=== PATIENT | male | born 1945 | race Caucasian/White ===

== ENCOUNTER 2019-06-26 17:59 | Emergency (ER) | payer MEDICARE, MEDICAID ==
[~2019-06-26] VITALS: Ht 175 cm; Wt 77.0 kg
[2019-06-26 18:31] VITALS: BP 127/77
--- NOTE | 2019-06-26 18:33 | ED General ---
General Chief Complaint: Allergic Reaction Stated Complaint: RASH ON BACK Nursing Triage Note: THE PT IS AMBULATORY TO THE ROOM WITHOUT DIFFICULTY. NO DISTRESS IS SEEN ON ARRIVAL. LOC IS NROMAL FOR THE PT. THE PT C/O OF A RASH ON HIS BACK. Nursing Sepsis Screen: No Definite Risk Source of Information: Patient Exam Limitations: No Limitations History of Present Illness Date Seen by Provider: Jun 26, 2019 Time Seen by Provider: 18:22 Initial Comments This 73-year-old gentleman presents to the emergency room with a painless, nonpruritic mildly erythematous rash on his back. He went home from work today feeling ill with dizziness and nausea. He vomited several times. He then rested and now feels normal. He denies any symptoms whatsoever. His girlfriend noted the rash on his back and became concerned. He therefore presented to the emergency room. Allergies and Home Medications Patient Home Medication List Home Medication List Reviewed: Yes Review of Systems Review of Systems Constitutional: no symptoms reported EENTM: no symptoms reported Respiratory: no symptoms reported Cardiovascular: other (dizziness) Gastrointestinal: see HPI Genitourinary: no symptoms reported Musculoskeletal: no symptoms reported Skin: see HPI Psychiatric/Neurological: No Symptoms Reported Hematologic/Lymphatic: No Symptoms Reported Past Tezyawc-Egeprh-Tiyvsj Hx Past Med/Social Hx: Reviewed Nursing Past Med/Soc Hx Patient Social History Recent Foreign Travel: No Contact w/Someone Who Travel: No Recent Infectious Disease Expo: No Recent Hopitalizations: No Physical Abuse: No Sexual Abuse: No Mistreated: No Fear: No Seasonal Allergies Seasonal Allergies: No Past Medical History Surgeries: Yes Orthopedic (multiple foot surgeries) Respiratory: No Cardiac: No Neurological: No Reproductive Disorders: No Gastrointestinal: No Musculoskeletal: Yes (foot problems related to service) Endocrine: No HEENT: No Cancer: No Psychosocial: No Integumentary: No Physical Exam Vital Signs Vital Signs - First Documented 06/26/19 18:16 Temp 36.6 Pulse 80 Resp 16 B/P (MAP) 127/77 (94) Pulse Ox 80 Capillary Refill : Less Than 3 Seconds Height, Weight, BMI Height: '" Weight: lbs. oz. kg; 25.00 BMI Method: General Appearance: No Apparent Distress, WD/WN HEENT: Normal ENT Inspection Respiratory: Lungs Clear, Normal Breath Sounds, No Accessory Muscle Use Cardiovascular: Regular Rate, Rhythm, No Edema, No Murmur Extremity: Normal Inspection Neurologic/Psychiatric: Alert, Oriented x3, No Motor/Sensory Deficits Skin: Warm/Dry, Rash (slightly erythematous and slightly raised maculopapular a rash scattered on the back. It is nonpainful, nontender, and not pruritic.) Progress/Results/Core Measures Suspected Sepsis Recent Fever Within 48 Hours: No Infection Criteria Present: None New/Unexplained Altered Menta: No Sepsis Screen: No Definite Risk SIRS Temperature: Pulse: 80 Respiratory Rate: 16 Blood Pressure 127 /77 Mean: 94 Results/Orders Vital Signs/I&O 06/26/19 06/26/19 18:16 18:31 Temp 36.6 Pulse 80 80 Resp 16 16 B/P (MAP) 127/77 (94) 127/77 Pulse Ox 80 96 Capillary Refill : Less Than 3 Seconds Blood Pressure Mean: 94 Progress Note : Progress Note Patient is asymptomatic other than the presence of rash. I suspect he has a viral illness that contributed to his symptoms earlier today and the rash. Watchful waiting was recommended. Departure Impression Primary Impression: Rash Disposition: 01 HOME, SELF-CARE Condition: Stable Departure-Patient Inst. Decision time for Depature: 18:31 Referrals: NO,LOCAL PHYSICIAN (PCP/Family) Primary Care Physician Patient Instructions: Skin Rash Add. Discharge Instructions: Your rash may be simply caused by a viral illness or some sort of skin exposure. You may apply a moisturizing lotion if you wish. If the rash itches, you may apply an anti-itch cream for a few days. If you have escalating symptoms, please call your doctor. If you have worsening symptoms such as recurrent vomiting or dizziness, development of fever, etc. you may return to the emergency room. All discharge instructions reviewed with patient and/or family. Voiced understanding. Work/School Note: Work Release Form Date Seen in the Emergency Department: Jun 26, 2019 Return to Work: Jun 26, 2019 Restrictions: No Restrictions HNANAH LUCERO MD Jun 26, 2019 18:33
== END 2019-06-26 18:41 | disposition home or self-care (01) ==
LOC: EDUNIT# 17:59 → ER 18:01
DX: R21 Rash and other nonspecific skin eruption (principal)
CPT/HCPCS: 99282

== ENCOUNTER → 2021-01-24 | Outpatient (CLI) | payer MEDICAID, MEDICARE ==
[2021-01-24 11:53] LABS: BASOPHILS # (AUTO) 0.1 10^3/uL (0.0-0.1); BASOPHILS % (AUTO) 1 % (0-10); EOSINOPHILS # (AUTO) 0.1 10^3/uL (0.0-0.3); EOSINOPHILS % (AUTO) 2 % (0-10); HEMATOCRIT 46 % (40-54); HEMOGLOBIN 15.4 g/dL (13.3-17.7); LYMPHOCYTES # (AUTO) 2.5 10^3/uL (1.0-4.0); LYMPHOCYTES % (AUTO) 30 % (12-44); MEAN CORPUSCULAR HEMOGLOBIN 33 pg (25-34); MEAN CORPUSCULAR HGB CONC 33 g/dL (32-36); MEAN CORPUSCULAR VOLUME 98 fL (80-99); MEAN PLATELET VOLUME 9.9 fL (9.0-12.2); MONOCYTES # (AUTO) 0.8 10^3/uL (0.0-1.0); MONOCYTES % (AUTO) 9 % (0-12); NEUTROPHILS # (AUTO) 4.9 10^3/uL (1.8-7.8); NEUTROPHILS % (AUTO) 58 % (42-75); PLATELET COUNT 295 10^3/uL (130-400); WHITE BLOOD COUNT 8.5 10^3/uL (4.3-11.0)
[2021-01-24 12:05] LABS: CHLORIDE 103 MMOL/L (98-107); POTASSIUM 4.2 MMOL/L (3.6-5.0); SODIUM 139 MMOL/L (135-145)
[2021-01-24 12:06] LABS: CALCIUM 9.5 MG/DL (8.5-10.1)
[2021-01-24 12:07] LABS: GLUCOSE 95 MG/DL (70-105)
[2021-01-24 12:08] LABS: TOTAL PROTEIN 6.9 GM/DL (6.4-8.2)
[2021-01-24 12:09] LABS: BILIRUBIN,TOTAL 0.5 MG/DL (0.1-1.0); CARBON DIOXIDE 29 MMOL/L (21-32)
[2021-01-24 12:11] LABS: ALKALINE PHOSPHATASE 63 U/L (40-136); CREATININE SERUM 1.04 MG/DL (0.60-1.30); GFR ESTIMATED > 60
[2021-01-24 12:12] LABS: BUN/CREATININE RATIO 9
[2021-01-24 12:14] LABS: ALANINE AMINOTRANSFERASE 15 U/L (0-55)
[2021-01-24 12:37] LABS: FREE T4 (FREE THYROXINE) 1.06 NG/DL (0.70-1.48)
--- NOTE | 2021-01-24 13:21 | Diagnostic Imaging Report ---
INDICATION: Chronic knee pain. COMPARISON: None. FINDINGS: Three views of the left knee joint demonstrate no acute fracture or dislocation. No focal osseous lesions are seen. Mild suprapatellar joint effusion is noted. There are also advanced tricompartmental degenerative changes. This consists of moderate joint space narrowing with prominent osteophyte formations. There is also sclerotic remodeling to the articular surfaces of the medial femoral condyle and tibial plateau. The surrounding soft tissue structures are unremarkable. There are no radiopaque foreign bodies. IMPRESSION: 1. No acute fractures or dislocations of the left knee joint. 2. Mild joint effusion. 3. Advanced osteoarthritis. Dictated by: Dictated on workstation # [id number]
[2021-01-24 13:36] LABS: CHOLESTEROL 198 MG/DL (< 200); HDL CHOLESTEROL 36 MG/DL (40-60); TRIGLYCERIDES 148 MG/DL (<150); VLDL CHOLESTEROL 30 MG/DL (5-40)
--- NOTE | 2021-01-24 14:48 | Diagnostic Imaging Report ---
HISTORY: Right calf pain, claudication. History of smoking. COMPARISON: None TECHNIQUE: Ankle brachial indices were obtained of the bilateral lower extremities FINDINGS: The highest brachial pressure is on the left, measuring 133 mmHg. The highest pressure in the right ankle measures 63 at the posterior tibial artery and the highest pressure in the left ankle measures 124 at the posterior tibial artery. The right ankle-brachial index measures 0.47 and the left measures 0.93. IMPRESSION: 1. Severe arterial disease in the right lower extremity. Dictated by: Dictated on workstation # [id number]
== END ==
LOC: RAD 10:51
PROVIDERS: ATTEND Family Medicine
DX: I70.211 Atherosclerosis of native arteries of extremities with intermittent claudication, right leg (principal); M17.12 Unilateral primary osteoarthritis, left knee; Z87.891 Personal history of nicotine dependence
CPT/HCPCS: 36415; 73562; 80053; 80061; 84439; 84443; 85025; 93922

== ENCOUNTER → 2021-02-07 | Outpatient (CLI) | payer MEDICAID, MEDICARE ==
[~2021-02-07] MED LIST: CATHETER FLUSH 10 ML SYR IV PRN; REGADENOSON 0.4 MG/5 ML SYR (LEXISCAN) IV ONE
[2021-02-07 13:00] VITALS: BP 145/73
--- NOTE | 2021-02-07 15:40 | Cardiology Stress Test Report ---
Stress Test Report Date of Procedure/Referring: Date of Procedure: Feb 07, 2021 PCP Oh Retana MD Admitting Physician No,Local Physician Indications: HTN Baseline Heart Rate: 70 Baseline Blood Pressure: Blood Pressure Systolic: 145 Blood Pressure Diastolic: 73 Baseline Vitals Vital Signs Date Time Temp Pulse Resp B/P (MAP) Pulse Ox O2 Delivery O2 Flow Rate FiO2 02/07/21 13:00 70 145/73 (97) 98 Baseline EKG: Baseline EKG: RBBB Summary After explaining the procedure to the patient, he signed a consent and then brought to the stress nuclear laboratory. Patient received 0.4 mg Lexiscan for stress test, ECG, heart rate and blood pressure were monitored continuously. Resting and stress dose of radio tracer were injected, imaging was acquired and reviewed in short axis, horizontal long axis and vertical long axis views. TID: 0.94 SSS: 11 SDS: 1 EF: 60 1. Patient tolerated Lexiscan well 2. Baseline right bundle branch block persisted during test 3. Diaphragmatic attenuation with fixed defect involving the basal to mid inferior wall and inferolateral wall with no significant ischemia 4. Normal left ventricular size with hypokinesia of the inferior wall, EF 60% OH RETANA MD Feb 07, 2021 15:40
== END ==
LOC: CARD 09:00
PROVIDERS: ATTEND Internal Medicine Cardiovascular Disease
DX: I10 Essential (primary) hypertension (principal); I35.8 Other nonrheumatic aortic valve disorders; I25.10 Atherosclerotic heart disease of native coronary artery without angina pectoris
CPT/HCPCS: 78452; 93017; 93306; A9502

== ENCOUNTER 2021-02-14 14:00 | Day surgery (SDC) | payer MEDICARE, MEDICAID ==
[~2021-02-14] VITALS: Ht 175 cm; Wt 77.0 kg
[2021-02-14 14:01] VITALS: BP 170/99
[2021-02-14] MEDS: NS IV 1000 ML 1,000 ML IV SCH ×2 (14:05→23:37)
[2021-02-14 14:10] LABS: HEMATOCRIT 47 % (40-54); MEAN CORPUSCULAR HEMOGLOBIN 33 pg (25-34); MEAN CORPUSCULAR HGB CONC 34 g/dL (32-36); MEAN CORPUSCULAR VOLUME 97 fL (80-99); MEAN PLATELET VOLUME 9.8 fL (9.0-12.2); PLATELET COUNT 260 10^3/uL (130-400); WHITE BLOOD COUNT 9.1 10^3/uL (4.3-11.0)
[2021-02-14 14:14] LABS: BILIRUBIN,URINE NEGATIVE (NEGATIVE); CLARITY,URINE CLEAR; COLOR,URINE YELLOW; GLUCOSE, URINE (UA) NEGATIVE (NEGATIVE); KETONES,URINE NEGATIVE (NEGATIVE); LEUKOCYTE ESTERASE ,URINE NEGATIVE (NEGATIVE); NITRITE,URINE NEGATIVE (NEGATIVE); PROTEIN,URINE NEGATIVE (NEGATIVE)
[2021-02-14] MEDS ORDERED: [UNRECOGNIZED DRUG - CODE] PO (14:16)
[2021-02-14] MEDS ORDERED: OMEP20CA18 PO (14:16)
[2021-02-14] MEDS ORDERED: LOSA25TA41 PO (14:16)
[2021-02-14] MEDS ORDERED: ACET500P24 PO (14:16)
[2021-02-14] MEDS ORDERED: NAPR-1073 PO (14:16)
[2021-02-14 14:25] LABS: ALBUMIN 4.2 GM/DL (3.2-4.5); CHLORIDE 108 MMOL/L (98-107); SODIUM 143 MMOL/L (135-145)
[2021-02-14 14:26] LABS: CALCIUM 9.4 MG/DL (8.5-10.1)
[2021-02-14 14:27] LABS: TRIGLYCERIDES 194 MG/DL (<150); VLDL CHOLESTEROL 39 MG/DL (5-40)
[2021-02-14 14:28] LABS: GLUCOSE 91 MG/DL (70-105); TOTAL PROTEIN 6.9 GM/DL (6.4-8.2)
[2021-02-14 14:29] LABS: CARBON DIOXIDE 23 MMOL/L (21-32)
[2021-02-14 14:30] LABS: BILIRUBIN,TOTAL 0.3 MG/DL (0.1-1.0)
[2021-02-14 14:31] LABS: ALKALINE PHOSPHATASE 55 U/L (40-136); CREATININE SERUM 0.96 MG/DL (0.60-1.30); GFR ESTIMATED > 60
[2021-02-14 14:31] LABS: BACTERIA,URINE NEGATIVE /HPF; WBC,URINE 0-2 /HPF
[2021-02-14 14:32] LABS: CHOLESTEROL 228 MG/DL (< 200); INR 0.9 (0.8-1.4); PROTHROMBIN TIME PATIENT 12.4 SEC (12.2-14.7)
[2021-02-14 14:33] LABS: BUN/CREATININE RATIO 16
[2021-02-14 14:34] LABS: HDL CHOLESTEROL 41 MG/DL (40-60)
[2021-02-14 14:35] LABS: ALANINE AMINOTRANSFERASE 12 U/L (0-55)
--- NOTE | 2021-02-14 14:46 | Diagnostic Imaging Report ---
INDICATION: Preop for catheterization, peripheral vascular disease. EXAMINATION: Frontal chest was obtained at 2:13 p.m. FINDINGS: Heart is normal in size. Aorta is tortuous and/or ectatic. There is a retrocardiac density which may represent hiatal hernia. There is mild central vascular congestion. There is no consolidation, pneumothorax or pleural fluid. IMPRESSION: Normal heart size with tortuous aorta and mild central vascular congestion. Retrocardiac density is present which may represent a hiatal hernia. There is no consolidation or pleural fluid. Dictated by: Dictated on workstation # [id number]
[2021-02-14] MEDS ORDERED: MIDAZOLAM 5 MG/5 ML (VERSED) VIAL ONE (15:21)
[2021-02-14] MEDS ORDERED: fentaNYL INJ 100 MCG/2 ML AMP ONE (15:21)
[2021-02-14] MEDS ORDERED: HEParin 1000 UNIT/ML (10ML VIAL) FOR BOLUS ONE (16:08)
[2021-02-14] MEDS ORDERED: NITRO DRIP 25000 MCG/D5W 0 ML IV ONE (16:10)
--- NOTE | 2021-02-14 16:34 | Conscious Sedation/ASA ---
Conscious Sedation Pre-Proced Time 14:00 ASA Score 3 For ASA 3 and 4: Consider anesthesia and medical clearance. Also, for patients with a history of failed moderate sedation consider anesthesia. Airway Lungs Heart ASA score ASA 1: a normal healthy patient ASA 2: a patient with a mild systemic disease (mid diabetes, controlled hypertension, obesity x ASA 3: a patient with a severe systemic disease that limits activity (angina, COPD, prior Myocardial infarction) ASA 4: a patient with an incapacitating disease that is a constant threat to life (CHF, renal failure) ASA 5: a moribund patient not expected to survive 24 hrs. (ruptured aneurysm) ASA 6: a declared brain- patient whose organs are being harvested. For emergent operations, add the letter E after the classification Mallampati Classification Grade 3 Sedation Plan Analgesia, Amnesia, Plan communicated to team members, Discussed options with patient/fam, Discussed risks with patient/fam The patient is an appropriate candidate to undergo the planned procedure, sedation, and anesthesia. The patient immediately re-assessed prior to indication. OH GARCIA MD Feb 14, 2021 16:34
--- NOTE | 2021-02-14 16:39 | Peripheral Report ---
Peripheral Report Physician (s)/Icing Mixer (s) Physician OH GARCIA MD Pre-Procedure Diagnosis Pre-Procedure Diagnosis: Claudication, peripheral arterial disease Post-Procedure Note Procedure Start Date: Feb 14, 2021 Name of Procedure: Abdominal aortogram with bilateral runoff Attempt for angioplasty on the right SFA Third order Additional imaging Findings/Procedure Note PROCEDURE NOTE: 75 years old gentleman with increasing claudication, has abnormal JUANA, scheduled for peripheral angiogram with bilateral runoff After explaining the procedure to the patient, all pros and cons were explained, all questions were answered. The patient signed the consent and then he was placed on the cardiac catheterization laboratory. The patient was placed on the cardiac catheterization laboratory. Groin was prepped SL fashion local anesthesia was used. Sheath placed in the left femoral artery, runoff to the left leg was done then using a rim catheter I crossed over and advanced straight catheter to the SFA did angiogram which showed total occlusion in the mid SFA, Storq wire was placed again, straight catheter and sheath were removed and placed a long 6 Ethiopian sheath down to the SFA, I noticed that the pressure has dampened significantly once I am in the SFA. I tried multiple times for crossing the total occlusion without success subsequently the catheter was pulled back then did injection through the sheath at the right common iliac artery which showed severe common iliac artery stenosis on the right the sheath was exchanged to a short 6 Ethiopian sheath then I placed a pigtail catheter in the abdominal aorta and did abdominal aortogram. At the end of the procedure sheath was removed, closure device deployed FINDINGS: Abdominal aortogram evaluation showed mild to moderate disease, no aneurysm or dissection, normal renal artery, SMA and ARI Right lower extremity, severe stenosis in the mid right common iliac artery, total occlusion at the mid right SFA reconstructed by collaterals good flow below the trifurcation Left lower extremity, has moderate stenosis at multiple segment at the mid and distal left SFA CONCLUSIONS: 1. Total occlusion of the mid right SFA and at the right common iliac artery, attempt for intervention of the SFA to cross the total occlusion lesion has failed. 2. Moderate disease in the left lower extremity 3. Atherosclerotic disease in the abdominal aorta DISCUSSION AND RECOMMENDATIONS: Will maximize medical therapy and refer the patient for evaluation for vascular surgery possible complex intervention with pedal access Anesthesia Type: Conscious Sedation Estimated blood loss (mL): 15 ml Post-Procedure Diagnosis Post-operative diagnosis: Claudication Peripheral arterial disease Hypertension Hyperlipidemia OH GARCIA MD Feb 14, 2021 16:39
[2021-02-14] MEDS ORDERED: CLOPIDOGREL 300 MG (PLAVIX) TABLET PO ONE (16:45)
[2021-02-14] MEDS ORDERED: PATIENT MAY USE OWN MEDS, ALL PO SCH (16:45)
[2021-02-14] MEDS ORDERED: ASPIRIN E.C. 325 MG (ECOTRIN) TABLET PO ONE (16:45)
[2021-02-14 20:00] VITALS: BP 132/101
[2021-02-14 23:15] VITALS: BP 152/72
[2021-02-15] MEDS: NS IV 1000 ML 1,000 ML IV SCH ×2 (02:53)
[2021-02-15 04:00] VITALS: BP 136/66
[2021-02-15 05:01] LABS: HEMATOCRIT 42 % (40-54); HEMOGLOBIN 13.9 g/dL (13.3-17.7); MEAN CORPUSCULAR HEMOGLOBIN 33 pg (25-34); MEAN CORPUSCULAR HGB CONC 33 g/dL (32-36); MEAN CORPUSCULAR VOLUME 97 fL (80-99); MEAN PLATELET VOLUME 10.2 fL (9.0-12.2); PLATELET COUNT 247 10^3/uL (130-400); WHITE BLOOD COUNT 8.9 10^3/uL (4.3-11.0)
[2021-02-15 05:20] LABS: BUN/CREATININE RATIO 19; CALCIUM 9.4 MG/DL (8.5-10.1); CARBON DIOXIDE 24 MMOL/L (21-32); CHLORIDE 109 MMOL/L (98-107); CREATININE SERUM 0.81 MG/DL (0.60-1.30); GFR ESTIMATED > 60; GLUCOSE 87 MG/DL (70-105); POTASSIUM 4.1 MMOL/L (3.6-5.0); SODIUM 140 MMOL/L (135-145)
[2021-02-15] MEDS ORDERED: CLOP75TA28 PO (06:53)
[2021-02-15] MEDS ORDERED: ASPI-1238 PO (06:53)
[2021-02-15] MEDS ORDERED: ATOR20TA66 PO (06:53)
--- NOTE | 2021-02-15 06:53 | Discharge Inst-Post CATH ---
Discharge Inst-CATH/EP Problems Reviewed?: Yes Post Cardiac Cath/EP D/C Inst Follow Up/Plan Appointment with Dr Leslie Appointment with Dr Retana in 2 weeks <b>CARDIAC CATH/EP PROCEDURE DISCHARGE INSTRUCTIONS</b> ACTIVITY * Go Home directly and rest. * Limit activity of the leg (or wrist if it was used) for 7 days including aerobics, swimming, jogging, bicycling, etc. * Restrict stair-climbing for 7 days if possible, if not, climb up with your non-cath leg, then bring together on the same step. * Avoid lifting, pushing, pulling or excessive movement of the affected extremity for 7 days. * Customary sexual activity may be resumed after 2 days-use caution not to use a position that strains or causes pain to the affected extremity. * No driving for 24 hours. * NO SMOKING. * Avoid straining for bowel movements for 7 days. * Gentle walking on level ground is allowed. * Returning to work will depend on the type of procedure and the results. Your doctor will discuss this with you. CALL YOUR DOCTOR FOR ANY OF THE FOLLOWING: *If bleeding from the puncture site occurs- Apply gentle pressure to site with clean cloth and call your doctor or EMS. * If a knot or lump forms under the skin, increases in size, or causes pain. * If bruising appears to be worsening or moving further down your leg instead of disappearing. * Temperature above 101 F. CARE OF YOUR GROIN INCISION; * Bruising or purple discoloration of the skin near the puncture site is common. * You may shower only, no bathtub bathing for 5 days. Be careful to avoid slipping as your leg may feel stiff. * If a closure device was used on your femoral artery, please see the attached guide regarding care of the device and your leg. * Leave dressing on FOR 24 hours. CARE OF YOUR WRIST INCISION; * Bruising or purple discoloration of the skin near the puncture site is common. * You may shower. * DO NOT submerge wrist. * Leave dressing on FOR 24 hours. OH RETANA MD Feb 15, 2021 06:53
[2021-02-15 07:45] VITALS: BP 130/78
[2021-02-15] MEDS ORDERED: PANTOPRAZOLE 20 MG TABLET (PROTONIX) PO SCH (09:00)
[2021-02-15] MEDS ORDERED: CLOPIDOGREL 75 MG (PLAVIX) TABLET PO SCH (09:00)
[2021-02-15] MEDS ORDERED: ASPIRIN E.C. 81 MG (ECOTRIN) TAB PO SCH (09:00)
[2021-02-15] MEDS ORDERED: LOSARTAN 25 MG (COZAAR) TAB PO SCH (09:00)
--- NOTE | 2021-02-15 10:44 | Cardiology Progress Note ---
Subjective Date Seen by Provider: Feb 15, 2021 Time Seen by Provider: 08:00 Subjective/Events-last exam Patient was seen at bedside, feeling better. No new complaint. No chest pain, groin is healing well Review of Systems General: No Chills, No Night Sweats, No Fatigue, No Malaise, No Appetite, No Other HEENT: No Head Aches, No Visual Changes, No Eye Pain, No Ear Pain, No Dysphasia, No Sinus Congestion, No Post Nasal Drip, No Sore Throat, No Other Pulmonary: No Dyspnea, No Cough, No Pleuritic Chest Pain, No Other Cardiovascular: No: Chest Pain, Palpitations, Orthopnea, Paroxysmal Noc. Dyspnea, Edema, Lt Headedness, Other Objective-Cardiology Exam Last Set of Vital Signs Vital Signs 02/15/21 02/15/21 04:00 07:45 Temp 36.2 Pulse 62 Resp 18 B/P (MAP) 130/78 (95) Pulse Ox 94 O2 Delivery Room Air O2 Flow Rate 2.00 Capillary Refill : Less Than 3 Seconds I&O Intake and Output 02/15/21 00:00 Intake Total 250 ml Balance 250 ml Intake Oral 250 ml # Voids 1 General: Alert, Oriented X3, Cooperative HEENT: Atraumatic, PERRLA Neck: Supple, No JVD, No Thyromegaly Lungs: Clear to Auscultation, Normal Air Movement Heart: Regular Rate, Normal S1, Normal S2, No Murmurs Abdomen: Normal Bowel Sounds, Soft, No Tenderness, No Hepatosplenomegaly, No Masses Extremities: No Clubbing, No Cyanosis, No Edema, Normal Pulses, No Tenderness/Swelling Skin: No Rashes, No Breakdown, No Significant Lesion Neuro: Normal Gait, Normal Speech, Strength at 5/5 X4 Ext, Normal Tone, Sensation Intact Psych/Mental Status: Mental Status NL, Mood NL Results Lab Laboratory Tests 02/14/21 14:01 02/15/21 04:22 A/P-Cardiology Admission Diagnosis Peripheral arterial disease Hypertension Hyperlipidemia Claudication Assessment/Plan Peripheral arterial disease, extensive disease, attempt for intervention has failed, arrange for referral for vascular surgery evaluation 1. Total occlusion of the mid right SFA and Severe stenosis at the right common iliac artery, attempt for intervention of the SFA to cross the total occlusion lesion has failed. 2. Moderate disease in the left lower extremity 3. Atherosclerotic disease in the abdominal aorta Hypertension, continue current medication Hyperlipidemia, monitor lipids OH GARCIA MD Feb 15, 2021 10:44
[2021-02-15 10:52] VITALS: BP 130/78
== END 2021-02-15 10:05 ==
LOC: CATH 14:00 → CSD 16:50 → CATH 02-15 10:05
PROVIDERS: ATTEND Internal Medicine Cardiovascular Disease
DX: I70.213 Atherosclerosis of native arteries of extremities with intermittent claudication, bilateral legs (principal); I10 Essential (primary) hypertension; E78.5 Hyperlipidemia, unspecified; I65.23 Occlusion and stenosis of bilateral carotid arteries; R07.2 Precordial pain; F17.210 Nicotine dependence, cigarettes, uncomplicated; Z79.899 Other long term (current) drug therapy
CPT/HCPCS: 36247; 36248; 71045; 75630; 80048; 80053; 80061; 81000; 85027 ×2; 85347; 85610; 85730; 87081; C1760; C1769 ×4; C1887 ×2; C1894 ×2; 36415

== ENCOUNTER → 2021-03-15 | Outpatient (CLI) | payer MEDICARE, MEDICAID ==
[~2021-03-15] MED LIST changes: +ACET500P24 PO; +ASPI-1238 PO; +ATOR20TA66 PO; -CATHETER FLUSH 10 ML SYR IV PRN; +CLOP75TA28 PO; +LOSA25TA41 PO; +NAPR-1073 PO; +OMEP20CA18 PO; -REGADENOSON 0.4 MG/5 ML SYR (LEXISCAN) IV ONE; +[UNRECOGNIZED DRUG - CODE] PO
== END ==
LOC: LABNPT 07:22
PROVIDERS: ATTEND Thoracic Surgery (Cardiothoracic Vascular Surgery)
DX: Z20.822 Contact with and (suspected) exposure to COVID-19 (principal)
CPT/HCPCS: 87635

== ENCOUNTER 2021-04-19 10:06 | Outpatient (CLI) | payer MEDICARE, MEDICAID ==
[~2021-04-19] VITALS: Ht 172.7 cm; Wt 73.6 kg
[2021-04-19] MEDS ORDERED: EPINEPHrine INJECTION 1 MG/ML AMP IM PRN (10:15)
[2021-04-19] MEDS ORDERED: diphenhydrAMINE 50 MG/ML INJ (BENADRYL) IV PRN (10:15)
[2021-04-19] MEDS ORDERED: ACETAMINOPHEN 500 MG TAB (TYLENOL) PO PRN (10:15)
[2021-04-19] MEDS ORDERED: CASIRIVIMAB/IMDEVIMAB 1,200 MG in NS (IVPB) 250 ML IV ONE (10:15)
[2021-04-19] MEDS ORDERED: ONDANSETRON 4 MG/2 ML (SDV) Z0FRAN IV PRN (10:15)
[2021-04-19 10:27] VITALS: BP 134/57
[2021-04-19 11:50] VITALS: BP 126/64
== END 2021-04-19 11:52 | disposition home or self-care (01) ==
LOC: INFUSION 10:06
PROVIDERS: ATTEND Nurse Practitioner Family
DX: Z23 Encounter for immunization (principal); U07.1 COVID-19

== ENCOUNTER → 2021-06-05 | Outpatient (CLI) | payer MEDICARE, MEDICAID | LOC: ORTHO 13:25 | PROVIDERS: ATTEND Orthopaedic Surgery | DX: M17.12 Unilateral primary osteoarthritis, left knee (principal) | CPT/HCPCS: 99203 ==

== ENCOUNTER 2022-02-20 05:28 | Outpatient (CLI) | payer MEDICARE, MEDICAID ==
[~2022-02-20] VITALS: Ht 177 cm; Wt 70.0 kg
[2022-02-20 10:11] VITALS: BP 154/81
[2022-02-20 10:32] LABS: BILIRUBIN,URINE NEGATIVE (NEGATIVE); CLARITY,URINE CLEAR; COLOR,URINE YELLOW; GLUCOSE, URINE (UA) NEGATIVE (NEGATIVE); HEMOGLOBIN 15.1 g/dL (13.3-17.7); KETONES,URINE NEGATIVE (NEGATIVE); LEUKOCYTE ESTERASE ,URINE NEGATIVE (NEGATIVE); NITRITE,URINE NEGATIVE (NEGATIVE); PROTEIN,URINE NEGATIVE (NEGATIVE); WHITE BLOOD COUNT 8.7 10^3/uL (4.3-11.0)
[2022-02-20 10:33] LABS: BASOPHILS # (AUTO) 0.1 10^3/uL (0.0-0.1); BASOPHILS % (AUTO) 1 % (0-10); EOSINOPHILS # (AUTO) 0.2 10^3/uL (0.0-0.3); EOSINOPHILS % (AUTO) 2 % (0-10); HEMATOCRIT 45 % (40-54); LYMPHOCYTES # (AUTO) 1.9 10^3/uL (1.0-4.0); LYMPHOCYTES % (AUTO) 22 % (12-44); MEAN CORPUSCULAR HEMOGLOBIN 32 pg (25-34); MEAN CORPUSCULAR HGB CONC 33 g/dL (32-36); MEAN CORPUSCULAR VOLUME 95 fL (80-99); MEAN PLATELET VOLUME 9.9 fL (9.0-12.2); MONOCYTES # (AUTO) 0.9 10^3/uL (0.0-1.0); MONOCYTES % (AUTO) 10 % (0-12); NEUTROPHILS # (AUTO) 5.7 10^3/uL (1.8-7.8); NEUTROPHILS % (AUTO) 65 % (42-75); PLATELET COUNT 286 10^3/uL (130-400)
[2022-02-20 10:41] LABS: BACTERIA,URINE NEGATIVE /HPF
[2022-02-20 10:49] LABS: INR 0.9 (0.8-1.4); PROTHROMBIN TIME PATIENT 12.8 SEC (12.2-14.7)
[2022-02-20 10:53] LABS: ALANINE AMINOTRANSFERASE 11 U/L (0-55); ALBUMIN 4.6 GM/DL (3.2-4.5); ALKALINE PHOSPHATASE 67 U/L (40-136); BILIRUBIN,TOTAL 0.6 MG/DL (0.1-1.0); BUN/CREATININE RATIO 7; CALCIUM 10.1 MG/DL (8.5-10.1); CARBON DIOXIDE 26 MMOL/L (21-32); CHLORIDE 102 MMOL/L (98-107); CREATININE SERUM 0.95 MG/DL (0.60-1.30); GFR ESTIMATED 83; GLUCOSE 92 MG/DL (70-105); SODIUM 140 MMOL/L (135-145); TOTAL PROTEIN 7.5 GM/DL (6.4-8.2)
[2022-02-20 11:03] LABS: ERYTHROCYTE SEDIMENTATION RATE 10 MM/HR (0-30)
--- NOTE | 2022-02-20 11:07 | Diagnostic Imaging Report ---
INDICATION: Preop clearance. Comparison with 02/14/2021. FINDINGS: PA and lateral views show the lungs to be well aerated. Mild interstitial prominence is again noted diffusely throughout the lungs. No consolidated infiltrates or masses. Heart is not enlarged. No evidence of pulmonary edema. No pneumothorax or pleural effusion. Ectatic aorta. Retrocardiac density consistent with hiatal hernia. IMPRESSION: 1. Chronic appearing interstitial lung disease. 2. Retrocardiac density unchanged likely representing hiatal hernia. Dictated by: Dictated on workstation # [id number]
== END 2022-02-20 13:53 ==
LOC: PREOP 05:28
PROVIDERS: ATTEND Orthopaedic Surgery
DX: Z01.818 Encounter for other preprocedural examination (principal); M17.12 Unilateral primary osteoarthritis, left knee
CPT/HCPCS: 36415; 71046; 80053; 81000; 82308; 85025; 85610; 85652; 86850; 86900; 86901; 87081; 93005

== ENCOUNTER 2022-02-27 05:54 | Inpatient (IN) | payer MEDICARE, MEDICAID ==
--- NOTE | 2022-02-20 08:07 | HISTORY AND PHYSICAL ---
DATE OF SERVICE: ADMISSION HISTORY AND PHYSICAL This will be for inpatient admission on 02/27/2022 for left total knee arthroplasty. The patient will require regular inpatient admission due to comorbidities, need for physical therapy and pain management. HISTORY OF PRESENT ILLNESS: The patient is a 76-year-old gentleman with longstanding progressive left knee pain. He reports this started over a year ago. He has had 3 intra-articular injections with no more than a week of relief. He reports pain primarily medially. He reports the brace wear has not helped. He reports pain with activities of daily living. Radiographs revealed severe medial and patellofemoral arthrosis and due to functional impairment and failure to improve with conservative measures, the patient elected to proceed with surgical intervention. REVIEW OF SYSTEMS: No chest pain, no shortness of breath, no dysuria. PAST MEDICAL HISTORY: Hypertension, acid reflux, hypercholesterolemia. PAST SURGICAL HISTORY: Vascular stents in his lower extremities. FAMILY HISTORY: Noncontributory. MEDICATIONS: Pantoprazole, clopidogrel, aspirin, arthritis, atorvastatin, losartan. ALLERGIES: No known drug allergies. SOCIAL HISTORY: The patient smokes 3/4 a pack a day. Denies alcohol use. PHYSICAL EXAMINATION: GENERAL: The patient is a well-developed, well-nourished, in no acute distress. HEENT: Normocephalic, atraumatic. Pupils are equal, round, reactive to light. Oropharynx is clear. NECK: Supple, no lymphadenopathy. LUNGS: Clear to auscultation bilaterally. HEART: Regular rate and rhythm. ABDOMEN: Soft, nontender, nondistended. EXTREMITIES: The left lower extremity demonstrates varus alignment. He is tender along his medial joint line. He has pain medially with Earl's. His range of motion 0/4/120 with no varus valgus laxity. Negative anterior and posterior drawer. IMPRESSION: Severe left knee osteoarthritis, unresponsive to conservative measures. PLAN: Left total knee arthroplasty. The risks, benefits, options, ramifications and recovery have been discussed at length with the patient. He understands and wishes to proceed. Job ID: [id number] DocumentID: [id number] Dictated Date: 02/11/2022 12:39:38 Mixer Foam Rubber Date: 02/11/2022 13:25:21 Dictated By: JEAN CLAUDE SPENCE MD
[2022-02-27] VITALS (11 sets, daily range): BP systolic 106–163; BP diastolic 55–89
[~2022-02-27] VITALS: Ht 177 cm; Wt 70.0 kg
[2022-02-27] MEDS ORDERED: MIDAZOLAM 2 MG/2 ML (VERSED) VIAL ONE (06:27)
[2022-02-27] MEDS ORDERED: ROPIVACAINE 5MG/ML 30ML VIAL ONE (06:27)
[2022-02-27] MEDS: LACTATED RINGERS 1,000 ML IV PRN ×2 (06:30→08:13)
[2022-02-27] MEDS ORDERED: CEFUROXIME INJECTION 1,500 MG in NS (IVPB) 50 ML IV ONE (06:30)
[2022-02-27] MEDS ORDERED: CEFUROXIME 1.5 GM/15 ML (ZINACEF) VIAL ONE (06:32)
[2022-02-27] MEDS ORDERED: ONDANSETRON 4 MG/2 ML (SDV) Z0FRAN ONE (07:06)
[2022-02-27] MEDS ORDERED: LIDOCAINE PF 2% 5 ML (XYLOCAINE) VIAL ONE (07:06)
[2022-02-27] MEDS ORDERED: proPOfol 200 MG/20 ML (DIPRIVAN) VIAL IV ONE (07:06)
[2022-02-27] MEDS ORDERED: NALOXONE 0.4 MG/ML 1 ML (NARCAN) VIAL IV PRN (07:15)
[2022-02-27] MEDS ORDERED: ONDANSETRON 4 MG/2 ML (SDV) Z0FRAN IVP PRN (07:15)
[2022-02-27] MEDS ORDERED: diphenhydrAMINE 50 MG/ML INJ (BENADRYL) IVP PRN (07:15)
[2022-02-27] MEDS ORDERED: morphine PCA 100 MG/100 ML BAG IV PRN (07:15)
--- NOTE | 2022-02-27 07:32 | Progress Note-Pre Operative ---
Pre-Operative Progress Note H&P Reviewed The H&P was reviewed, patient examined and no changes noted. Date Seen by Provider: Feb 27, 2022 Time Seen by Provider: 07:22 Date H&P Reviewed: Feb 27, 2022 Time H&P Reviewed: 07:11 Pre-Operative Diagnosis: left knee primary osteoarthritis JEAN CLAUDE SPENCE MD Feb 27, 2022 07:32
--- NOTE | 2022-02-27 07:33 | Progress Note-Post Operative ---
Post-Operative Progess Note Surgeon (s)/Rack Cleaner (s) Surgeon JEAN CLAUDE SPENCE MD Rack Cleaner: Kei Wing Pre-Operative Diagnosis left knee primary osteoarthritis Post-Operative Diagnosis left knee primary osteoarthritis Procedure & Operative Findings Date of Procedure 02/27/22 Procedure Performed/Findings left total knee arthroplasty Anesthesia Type GETA Estimated Blood Loss Estimated blood loss (mL): minimal Specimens/Packing Specimens Removed none Packing: none JEAN CLAUDE SPENCE MD Feb 27, 2022 07:32
[2022-02-27] MEDS ORDERED: fentaNYL INJ 100 MCG/2 ML AMP ONE (07:34)
--- NOTE | 2022-02-27 07:35 | D/C HH Face to Face Order ---
D/C Face to Face Orders Reconcile Patient Problems Problems Reviewed?: Yes Instructions for Patient Via [employer], Patient Instructions/FollowUp: three weeks Physician to follow Patient: three weeks Discharge Diet for Home: No Restrictions Patient Data-Allergies,Ht & Wt Patient Allergies: Coded Allergies: No Known Drug Allergies (Unverified , 02/14/21) Home Health Need/Face to Face Date of Face to Face: Feb 27, 2022 Clinical Findings: Muscle weakness, Pain with ambulation, Unsteady gait I have seen Pt [id number]: Yes Discharged To: Home Diagnosis/Conditions: left total knee arthroplasty Patient is Homebound due to: Muscle weakness, Pain w/ambulation Homebound Status Due to the above stated illness, injury or surgical procedure (medical condition or diagnosis) and associated clinical findings, the patient is homebound because of his/her inability to leave home except with aid of a supportive device and/or person AND leaving the home requires a considerable and taxing effort or is medically contraindicated. Pt req the following assistanc: [facility] Nursing Orders Home Health Services Order: Physical Therapy-Evaluate & Treat DC left knee jaja and apply steristrips 03/13/22 Home Health Infusion Therapy Line Start Date: Feb 27, 2022 Therapy Orders Therapy Orders: Physical Therapy, PT to assess for OT Therapy Specific Orders: Eval assistive deivces, Teach enviro modifications/safety, Gait training, Increase strength/endurance, Provider maintenance therapy, Restore ROM Certify Stmt I certify that this patient is under my care and that I, a nurse practitioner or a physician; a human services assistant working with me, had a face to face encounter that - meets the physician face to face encounter requirements with this patient as dated. JEAN CLAUDE SPENCE MD Feb 27, 2022 07:35
[2022-02-27] MEDS ORDERED: INTRA-ARTICULAR IU ONE ×5 (08:00)
[2022-02-27] MEDS ORDERED: TRANEXAMIC ACID 100 MG/ML 10 ML INJECTION ONE (08:20)
[2022-02-27] MEDS ORDERED: morphine INJ 10 MG/ML 1ML (SYR OR VIAL) ONE (08:21)
--- NOTE | 2022-02-27 09:42 | Diagnostic Imaging Report ---
INDICATION: Postop left knee. FINDINGS: 2 views. Total arthroplasty left knee is noted. Components are all in good alignment. No cortical bony fractures. No hardware loosening. IMPRESSION: Satisfactory appearing arthroplasty left knee. Dictated by: Dictated on workstation # [id number]
[2022-02-27] MEDS ORDERED: SEVOFLURANE (ULTANE) 15 ML INHAL SOLN ONE (10:52)
[2022-02-27] MEDS: SENNA W/DOCUSATE (SENOKOT S) TABLET PO SCH ×2 (11:19→21:02)
[2022-02-27] MEDS: NS IV 1000 ML 1,000 ML IV SCH ×2 (11:19→21:01)
--- NOTE | 2022-02-27 11:57 | Progress Note ---
Standard Progress Note Progress Notes/Assess & Plan Date Seen by a Provider: Feb 27, 2022 Time Seen by a Provider: 11:45 Progress/Assessment & Plan no complaints readiographs--HW well positioned without fracture LLE--2 plus DP pulse with brisk cap refill intact DF and PF of toes and ankle sensation intact to light touch throughout s/p LTKA mobilize as able JEAN CLAUDE SPENCE MD Feb 27, 2022 11:57
--- NOTE | 2022-02-27 13:43 | Physical Therapy Evaluation ---
PT Evaluation-General Medical Diagnosis Admission Date Feb 27, 2022 at 05:54 Medical Diagnosis: Left TKA Onset Date: Feb 27, 2022 Therapy Diagnosis Therapy Diagnosis: Gait deficit, strength deficit Precautions Precautions/Isolations: Fall Prevention Weight Bear Status Right Lower Extremity: Right Full Weight Bearing Left Lower Extremity: Left Weight Bearing/Tolerated Referral Physician: Dr. Belle Reason for Referral: Evaluation/Treatment Medical History Reviewed History: Yes Social History Home: Single Level Current Living Status: Friend Entry Into Home: Stairs With Railing PT Steps Into Home: 4 Prior Prior Level of Function SCALE: Activities may be completed with or without assistive devices. 2-Vtkwrvxjhx-vcomdsr completes the activity by him/herself with no assistance from a helper. 5-Set-up or Clean-up Assistance-helper sets up or cleans up; patient completes activity. [place] assists only prior to or following the activity. 4-Supervision or Touching Assistance-helper provides verbal cues and/or touching/steadying and/or contact guard assistance as patient completes activity. Assistance may be provided throughout the activity or intermittently. 3-Partial/Moderate Assistance-helper does LESS THAN HALF the effort. [place] lifts, holds or supports trunk or limbs, but provides less than half the effort. 2-Substantial/Maximal Assistance-helper does MORE THAN HALF the effort. [place] lifts or holds trunk or limbs and provides more than half the effort. 6-Zktzaxvse-krmpab does ALL the effort. Patient does none of the effort to complete the activity. Or, the assistance of 2 or more helpers is required for the patient to complete the activity. If activity was not attempted, code reason: 7-Patient Refused. 9-Not Applicable-not attempted and the patient did not perform the activity before the current illness, exacerbation or injury. 10-Not Attempted due to Environmental Limitations-(lack of equipment, weather restraints, etc.). 88-Not Attempted due to Medical Conditions or Safety Concerns. Bed Mobility: 6 Transfers (B,C,W/C): 6 Gait: 6 Stairs: 6 Indoor Mobility (Ambulation): Independent Stairs: Independent Prior Devices Use: None Will need FWW to return home. PT Evaluation-Current Subjective Patient lying supine in bed upon PT arrival, agreeable to treatment. Patient rates pain at 0/10 currently in the left knee. Objective Patient Orientation: Person, Place, Time, Situation Attachments: Oxygen, IV ROM/Strength ROM Lower Extremities Right LE WFLs all planes; Left knee extension 10 degrees from neutral, flexion 95 degrees Strength Lower Extremities 4-/5 Right LE all planes; Left knee flexion 3/5, extension 2/5, all other Left LE planes 3+/5 Sensory Vision: Functional Hearing: Functional Sensation Right Lower Extremit: Intact Sensation Left Lower Extremity: Intact Sensation Lower Extremities Reports no sensation to light touch in the areas of the surgical incision Transfers Roll Left to Right (QC): 4 Sit to Lying (QC): 4 Lying to Sitting/Side of Bed(Q: 4 Sit to Stand (QC): 3 Chair/Pvb-ew-Nxhtq Xfer(QC): 3 Gait Does the Patient Walk?: Yes Mode of Locomotion: Walk Anticipated Mode of Locomotion: Walk Distance: 3 Gait Assistive Device: FWW Balance Sitting Static: Normal Sitting Dynamic: Normal Standing Static: Good Standing Dynamic: Good Assessment/Needs Patient tolerated treatment well. Demonstrates SBA for all bed mobility and min A for transfers. Patient demonstrates left knee ROM from 10 degrees lacking full extension to 95 degrees flexion. Patient ambulates 3 feet with FWW, with min A and verbal cues for safety, progression, balance and fuse of FWW. Patient able to place minimal weight through left LE, however maintains flexion during stance time. Patient in chair post treatment with all needs met, nursing notified, call light in reach. Rehab Potential: Good Equipment Needs FWW PT Telescope Maintenance Goals Telescope Maintenance Goals PT Senior Care Goals Time Frame: Mar 15, 2022 Roll Left & Right (QC): 6 Sit to Lying (QC): 6 Lying-Sitting on Side/Bed(QC): 6 Sit to Stand (QC): 6 Chair/Sbz-ch-Rcbpc Xfer(QC): 6 Toilet Transfer (QC): 4 Car Transfer (QC): 4 Does the Patient Walk: Yes Walk 10 feet (QC): 4 Walk 50ft with 2 Turns (QC): 4 Walk 150 ft (QC): 4 1 Step (curb) (QC): 4 4 Steps (QC): 4 PT Plan Problem List Problem List: Activity Tolerance, Functional Strength, Safety, Balance, Gait, Transfer, Bed Mobility, ROM Treatment/Plan Treatment Plan: Continue Plan of Care Treatment Plan: Bed Mobility, Education, Functional Activity Yariel, Functional Strength, Group Therapy, Gait, Safety, Therapeutic Exercise, Transfers Treatment Duration: Mar 30, 2022 Frequency: 11 times per week Estimated Hrs Per Day: .25 hour per day Patient and/or Family Agrees t: Yes Safety Risks/Education Patient Education: Gait Training, Transfer Techniques Teaching Recipient: Patient Teaching Methods: Demonstration, Discussion Response to Teaching: Verbalize Understanding, Return Demonstration Discharge Recommendations Target Placement Home with A Time/GCodes Time In: 1314 Time Out: 1332 Total Billed Treatment Time: 18 Total Billed Treatment Visit, MIRANDA WILKS PT Feb 27, 2022 13:43
--- NOTE | 2022-02-27 14:47 | OPERATIVE REPORT ---
DATE OF SERVICE: 02/27/2022 PREOPERATIVE DIAGNOSIS: Left knee primary osteoarthritis. POSTOPERATIVE DIAGNOSIS: Left knee primary osteoarthritis. PROCEDURE: Left total knee arthroplasty. SURGEON: Mikey Spence MD CORPORATE PLANNING MANAGER: Kei Wing, who assisted throughout the procedure and closed the incisions. ANESTHESIA: General endotracheal by Lea Vasquez CRNA. TOURNIQUET TIME: Approximately 63 minutes at 300 mmHg. ESTIMATED BLOOD LOSS: Minimal. DRAINS: None. COMPLICATIONS: None. POSTOPERATIVE PLAN: Routine protocol. The patient was transferred to the recovery room awake and in stable condition. STATEMENT OF MEDICAL NECESSITY: The patient is a 76-year-old gentleman with longstanding left knee pain. Radiographs revealed severe tricompartmental osteoarthritis. He has undergone treatment with injections, anti-inflammatories and rest without relief. Due to functional impairment and failure to improve with conservative measures, the patient elected to proceed with surgical intervention. DESCRIPTION OF PROCEDURE: After risks and benefits of procedure were discussed and questions were answered, an informed consent was signed and placed on chart, the operative site was confirmed in the preoperative holding area initialed by the surgeon. The patient was then transferred to the operating room and after adequate levels of general endotracheal anesthetic were obtained, timeout was called, confirming the operative site, the left lower extremity was prepped and draped in the usual sterile fashion with the leg elevated and the knee flexed. Tourniquet was inflated to 300 mmHg. Standard anterior approach was utilized. Hemostasis was obtained with cautery. Medial parapatellar arthrotomy was performed leaving 1 cm cuff on the patella for later reattachment. A portion of the fat pad was resected. The ACL was resected. The intramedullary guide was passed into the femoral canal and distal cut was made. The femur was then sized to a size 6 and 6 cutting block was placed parallel to the epicondylar axis and cuts were made from posterior to anterior. Subperiosteal release was then carefully performed on the posterior distal femur, being careful to stay on the bony surface. Intramedullary guide was then passed into the tibia. The cutting block was placed. The drop cong transected the intermalleolar axis and the cut was made. The 6 baseplate was placed. Again, the drop cong transected the intermalleolar axis. This was then prepared with the drill and keel punch. The femoral trial was placed, and trochlear cut was made. A 10 mm insert was placed. The patella was then prepared by resecting 10 mm off the undersurface. The peg guide was placed, and peg holes were drilled, and 35 trial was placed. The knee was taken through range of motion. Full extension was easily obtained 120 degrees of flexion with gravity was easily obtained. The patella tracked well. There was no anterior/posterior or medial/lateral laxity in flexion or extension. The trials were removed. The joint and bone ends were irrigated with pulse lavage. Periarticular block was placed in the posterior capsule, medial and lateral retinaculum, extensor mechanism, subcutaneous tissues. The tibial baseplate was cemented into position. Excessive cement was removed. The superior surface was irrigated and dried and polyethylene insert was placed. The distal femur was then irrigated and dried and the femoral prosthesis was cemented into position. The knee was brought out in full extension until cement had cured. Excessive cement was removed. The undersurface of patella was irrigated and dried. The patellar button was cemented into position. Once cement had cured, the knee was taken through range of motion. Full extension was easily obtained 120 degrees of flexion with gravity was easily obtained. There was no anterior/posterior or medial/lateral laxity in flexion or extension. The patella tracked well. The joint was further irrigated with pulse lavage. The arthrotomy was closed with #2 Tevdek in jqcmro-ji-smkeg interrupted fashion. The knee was flexed. The repair was stable. The subcutaneous tissues were irrigated using a total of 6 liters throughout the procedure. A 0 Vicryl was used to deep subcutaneous layer, 2-0 Vicryl for the superficial subcutaneous layer, jaja used on the skin. A soft dressing was applied. The tourniquet was deflated. The patient was transferred to the recovery room awake and in stable condition. Job ID: [id number] DocumentID: [id number] Dictated Date: 02/27/2022 09:12:26 Carburetor Repairer Date: 02/27/2022 14:46:37 Dictated By: MIKEY SPENCE MD
[2022-02-27] MEDS: CEFUROXIME INJECTION 750 MG in NS (IVPB) 50 ML IV SCH ×2 (15:23→23:23)
--- NOTE | 2022-02-27 18:29 | History & Physical ---
History of Present Illness History of Present Illness Reason for visit/HPI This is a 76 year old male with severe left knee osteoarthritis who underwent left TKA by Dr. Belle. The patient has a history of PAD with stents as well as COPD with ongoing tobacco abuse. He is currently post-op with pain well controlled. He is on oxygen and does have bilateral wheezes and rhonchi. Date of Admission Feb 27, 2022 at 05:54 Date Seen by a Provider: Feb 27, 2022 Time Seen by a Provider: 18:23 I consulted on this patient on 02/27/22 18:22 Attending Physician Hamilton Logan DO Admitting Physician Admitting Physician: Mikey Belle MD Attending Physician: Mikey Belle MD Consult Allergies and Home Medications Allergies Coded Allergies: No Known Drug Allergies (Unverified , 02/14/21) Patient Home Medication List Home Medication List Reviewed: Yes Acetaminophen (8Hr Arthritis Pain) 650 Mg Tablet.er, 650 MG PO PRN, (Reported) Entered as Reported by: GARY BOWEN on 02/14/211415 Last Action: Reviewed Aspirin (Aspirin EC) 81 Mg Tablet.dr, 81 MG PO DAILY Prescribed by: OH GARCIA on 02/15/21652 Last Action: Last Taken Edited Atorvastatin Calcium (Atorvastatin Calcium) 20 Mg Tablet, 20 MG PO HS Prescribed by: OH GARCIA on 02/15/21652 Last Action: Continued Clopidogrel Bisulfate (Clopidogrel) 75 Mg Tablet, 75 MG PO DAILY Prescribed by: OH GARCIA on 02/15/21652 Last Action: Last Taken Edited Losartan Potassium (Losartan Potassium) 25 Mg Tablet, 25 MG PO DAILY, (Reported) Entered as Reported by: GARY BOWEN on 02/14/211415 Last Action: Continued Omeprazole (Omeprazole) 20 Mg Capsule.dr, 20 MG PO DAILY, (Reported) Entered as Reported by: GARY BOWEN on 02/14/211415 Last Action: Continued Discontinued Medications Acetaminophen (Tylenol Extra Strength) 500 Mg Powd.pack, 500 MG PO PRN, (Reported) Discontinued Reason: Duplicate Order Entered as Reported by: GARY BOWEN on 02/14/211415 Naproxen (EC-Naprosyn) 500 Mg Tablet.dr, 500 MG PO BID, (Reported) Discontinued Reason: No Longer Taking Entered as Reported by: GARY BOWEN on 02/14/21 1416 Past Eqltugi-Lhobkn-Xzxmln Hx Patient Social History Employed/Student: retired Tobacco Use?: Yes Tobacco type used: Cigarettes Smoking Status: Current Everyday Smoker Substance use?: No Alcohol Use?: No Pt feels they are or have been: No Immunizations Up To Date First/Initial COVID19 Vaccinat: 2020 Second COVID19 Vaccination Chris: 2020 Tetanus Booster (TDap): Unknown Seasonal Allergies Seasonal Allergies: No Current Status Advance Directives: No Communicates: Verbally Primary Language: Salvadorean Implanted or Applied Medical D: None Past Medical History Surgeries: Orthopedic Currently Using CPAP: No Currently Using BIPAP: No High Cholesterol, Hypertension Gastroesophageal Reflux Arthritis, Chronic Back Pain Hearing Impairment: Hard of Hearing Blood Disorders: No Review of Systems Constitutional: weakness EENTM: No see HPI, No no symptoms reported, No ear discharge, No hearing loss, No ear pain, No blurred vision, No double vision, No eye pain, No tearing, No vision loss, No dental problems, No hoarseness, No mouth pain, No mouth swelling, No epistaxis, No nose congestion, No nose pain, No throat pain, No throat swelling, No other Respiratory: cough, dyspnea on exertion, short of breath, wheezing Cardiovascular: No no symptoms reported, No see HPI, No chest pain, No edema, No Hx of Intervention, No palpitations, No syncope, No vascular heart diseas, No other Gastrointestinal: No RUQ, No LUQ, No RLQ, No LLQ, No no symptoms reported, No see HPI, No abdominal pain, No constipation, No diarrhea, No dysphagia, No hematemesis, No heartburn, No jaundice, No loss of appetite, No melena, No nausea, No vomiting, No other Genitourinary: No no symptoms reported, No see HPI, No decreased output, No discharge, No dysuria, No frequency, No hematuria, No hesitancy, No incontinence, No nocturia, No pain, No other Musculoskeletal: joint pain (left knee) Skin: No no symptoms reported, No see HPI, No change in color, No change in hair/nails, No dryness, No hx of skin cancer, No lesions, No lumps, No pruritus, No rash, No other Psychiatric/Neurological: Denies No Symptoms Reported, Denies See HPI, Denies Anxiety, Denies Depressed, Denies Emotional Problems, Denies Headache, Denies Numbness, Denies Paresthesia, Denies Pre-Existing Deficit, Denies Seizure, Denies Tingling, Denies Tremors, Denies Weakness, Denies Other Physical Exam Vital Signs Vital Signs - First Documented 02/27/22 06:00 Temp 36.0 Pulse 78 Resp 18 B/P (MAP) 162/89 (113) Pulse Ox 97 O2 Delivery Room Air Capillary Refill : Height, Weight, BMI Height: '" Weight: lbs. oz. kg; 22.34 BMI Method: General Appearance: No Apparent Distress HEENT: Pharynx Normal Neck: Supple Respiratory: Decreased Breath Sounds, Rales, Rhonci, Wheezing Cardiovascular: Regular Rate, Rhythm, Gallop/S4 Gastrointestinal: Normal Bowel Sounds, Non Tender, Soft Rectal: Deferred Back: No CVA Tenderness Extremity: Non Tender, No Calf Tenderness, No Pedal Edema, Other (FRANKLYN hose on and ice to left knee in place) Neurologic/Psychiatric: Alert, Oriented x3 Skin: Warm/Dry Assessment/Plan Assessment and Plan 1. Severe Left Knee Osteoarthritis--S/P Left TKA, pain control, lovenox for DVT prophylaxis 2. PAD with history of stents--resume plavix 3. Hypertension--resume losartan 4. Hyperlipidemia--resume atorvastatin 5. COPD with ongoing tobacco abuse--start IS as well as SVNS with duoneb, patient currently requiring post-op oxygen Admission Diagnosis Admission Status: Inpatient Order (span 2 midnights) Reason for Inpatient Admission: See HAMILTON Benavides DO Feb 27, 2022 18:29
[2022-02-27] MEDS ORDERED: RT-ALBUTEROL/IPRATROPIUM 3 ML (DUONEB) VIAL INH NR (18:30)
[2022-02-27] MEDS ORDERED: RT-ALBUTEROL/IPRATROPIUM 3 ML (DUONEB) VIAL INH PRN (20:00)
[2022-02-27] MEDS ORDERED: RT-ALBUTEROL HFA 8.5 GM INHALER IH SCH (21:00)
[2022-02-27] MEDS ORDERED: ALBUTEROL/IPRATROP (COMBIVENT RESPIMAT) 4 GM INHALER IH SCH (21:00)
[2022-02-27] MEDS: RT-ALBUTEROL/IPRATROPIUM 3 ML (DUONEB) VIAL INH SCH (22:35)
[2022-02-28] MEDS: RT-ALBUTEROL/IPRATROPIUM 3 ML (DUONEB) VIAL INH SCH ×6 (02:44→21:39)
[2022-02-28 03:08] VITALS: BP 100/53
[2022-02-28] MEDS: oxyCODONE/APAP 5/325MG (PERCOCET 5) TABLET PO PRN ×5 (03:36→23:07)
[2022-02-28 06:21] LABS: HEMOGLOBIN 10.7 g/dL (13.3-17.7)
[2022-02-28 07:38] VITALS: BP 136/76
--- NOTE | 2022-02-28 07:46 | Anesthesia-General Post-Op ---
General Patient Condition Mental Status/LOC: Same as Preop Cardiovascular: Satisfactory Nausea/Vomiting: Absent Respiratory: Satisfactory Pain: Controlled Complications: Absent Post Op Complications Complications None Follow Up Care/Instructions Patient Instructions None needed. Anesthesia/Patient Condition Patient Condition Patient is doing well, no complaints, stable vital signs, no apparent adverse anesthesia problems. No complications reported per nursing. D/C home per [facility] Criteria: KRAIG Coto CRNA Feb 28, 2022 07:46
--- NOTE | 2022-02-28 07:47 | Progress Note ---
Standard Progress Note Progress Notes/Assess & Plan Date Seen by a Provider: Feb 28, 2022 Time Seen by a Provider: 07:46 Progress/Assessment & Plan no complaints readiographs--HW well positioned without fracture LLE--2 plus DP pulse with brisk cap refill intact DF and PF of toes and ankle sensation intact to light touch throughout s/p LTKA mobilize as able Final Diagnosis no complaints Vital Signs Date Time Temp Pulse Resp B/P (MAP) Pulse Ox O2 Delivery O2 Flow Rate FiO2 02/28/22 07:38 37.7 77 20 136/76 (96) 93 High Flow N/C 6.00 02/28/22 03:36 38.0 02/28/22 03:08 38.0 82 22 100/53 (69) 93 Nasal Cannula 6.00 02/28/22 02:44 94 High Flow N/C 6.00 02/27/22 23:39 37.1 95 22 163/71 (101) 96 Nasal Cannula 6.00 02/27/22 22:36 91 High Flow N/C 6.00 02/27/22 20:58 96 High Flow N/C 6.00 02/27/22 19:38 95 Nasal Cannula 6.00 02/27/22 19:30 37.6 93 22 162/71 (101) 96 Nasal Cannula 6.00 02/27/22 16:48 36.2 58 18 128/66 (86) 97 Nasal Cannula 6.00 02/27/22 11:39 36.6 79 18 133/61 (85) 95 Nasal Cannula 6.50 02/27/22 11:09 36.9 16 02/27/22 10:03 Nasal Cannula 1 02/27/22 10:00 36.7 14 119/58 (78) 93 Nasal Cannula 1 02/27/22 09:50 17 117/56 (76) 96 Room Air 02/27/22 09:45 OxyMask 2 02/27/22 09:40 14 106/55 (72) 96 OxyMask 2 02/27/22 09:30 OxyMask 3 02/27/22 09:30 16 130/57 (81) 97 OxyMask 3 02/27/22 09:20 14 138/61 (86) 97 OxyMask 6 02/27/22 09:12 OxyMask 8 02/27/22 09:12 36.9 16 133/72 (92) 96 OxyMask 8 I & O 02/28/22 07:00 Intake Total 3580 ml Output Total 1050 ml Balance 2530 ml Laboratory Tests Test 02/28/22 05:09 Range/Units Hemoglobin 10.7 L 13.3-17.7 g/dL Hematocrit 33 L 40-54 % LLE--dressing intact NVI distally no calf tenderness s/p LTKA PT/OT JEAN CLAUDE SPENCE MD Feb 28, 2022 07:47
[2022-02-28] MEDS ORDERED: UMECLIDINIUM BROMIDE (INCRUSE ELLIPTA) 7'S IH SCH (08:00)
[2022-02-28] MEDS: SENNA W/DOCUSATE (SENOKOT S) TABLET PO SCH ×2 (08:05→20:35)
[2022-02-28] MEDS: LOSARTAN 25 MG (COZAAR) TAB PO SCH (08:05)
[2022-02-28] MEDS: CLOPIDOGREL 75 MG (PLAVIX) TABLET PO SCH (08:05)
[2022-02-28] MEDS: PANTOPRAZOLE 20 MG TABLET (PROTONIX) PO SCH (08:05)
[2022-02-28] MEDS: ASPIRIN E.C. 81 MG (ECOTRIN) TAB PO SCH (08:06)
[2022-02-28] MEDS: ENOXAPARIN INJECTION 30 MG/0.3 ML SYR SC SCH ×2 (08:19→20:32)
[2022-02-28] MEDS: NS IV 1000 ML 1,000 ML IV SCH ×2 (08:24→20:34)
[2022-02-28] MEDS ORDERED: OMEPRAZOLE 20 MG (PriLOSEC) CAP NON-FORMULARY PO SCH (09:00)
--- NOTE | 2022-02-28 10:17 | Physical Therapy Daily Note ---
PT Daily Note-Current Subjective Patient agrees to PT. Pain Numeric Pain Scale: 7 Location: Left Location Body Site: Knee Pain Description: Acute Mental Status Patient Orientation: Normal For Age Attachments: Polar Pack, IV Transfers SCALE: Activities may be completed with or without assistive devices. 9-Ylvmpkjdgi-pfonujz completes the activity by him/herself with no assistance from a helper. 5-Set-up or Clean-up Assistance-helper sets up or cleans up; patient completes activity. [place] assists only prior to or following the activity. 4-Supervision or Touching Assistance-helper provides verbal cues and/or touching/steadying and/or contact guard assistance as patient completes activity. Assistance may be provided throughout the activity or intermittently. 3-Partial/Moderate Assistance-helper does LESS THAN HALF the effort. [place] lifts, holds or supports trunk or limbs, but provides less than half the effort. 2-Substantial/Maximal Assistance-helper does MORE THAN HALF the effort. [place] lifts or holds trunk or limbs and provides more than half the effort. 2-Qajptbqcl-iosqfu does ALL the effort. Patient does none of the effort to co mplete the activity. Or, the assistance of 2 or more helpers is required for the patient to complete the activity. If activity was not attempted, code reason: 7-Patient Refused. 9-Not Applicable-not attempted and the patient did not perform the activity before the current illness, exacerbation or injury. 10-Not Attempted due to Environmental Limitations-(lack of equipment, weather restraints, etc.). 88-Not Attempted due to Medical Conditions or Safety Concerns. Sit to Stand (QC): 4 Weight Bearing Right Lower Extremity: Right Full Weight Bearing Left Lower Extremity: Left Weight Bearing/Tolerated Gait Training Distance: 75' Walk 10 feet (QC): 4 Walk 50 ft with 2 Turns(QC): 4 Gait Assistive Device: FWW minimal weight bearing left LE with ~20 degrees lacking of knee extension Exercises Supine Ex: Ankle pumps, Quad Set, Heel Slides, Straight leg raise Supine Reps: 12 (in recliner) Seated Reps: 15 (with stretching hamstring to improve knee extension) Assessment Patient requires time to complete all functional tasks. Patient very resistive to weight bear left LE due to pain and lacking ~20 degrees knee extension. Education with patient on performing knee extension exercises in recliner with LE's elevated and down. Patient voices understanding. PT Electric Container Tester Goals Electric Container Tester Goals PT Electric Container Tester Goals Time Frame: Mar 15, 2022 Roll Left & Right (QC): 6 Sit to Lying (QC): 6 Lying-Sitting on Side/Bed(QC): 6 Sit to Stand (QC): 6 Chair/Gcg-sr-Linqq Xfer(QC): 6 Toilet Transfer (QC): 4 Car Transfer (QC): 4 Does the Patient Walk: Yes Walk 10 feet (QC): 4 Walk 50ft with 2 Turns (QC): 4 Walk 150 ft (QC): 4 1 Step (curb) (QC): 4 4 Steps (QC): 4 PT Plan Treatment/Plan Treatment Plan: Continue Plan of Care Treatment Plan: Bed Mobility, Education, Functional Activity Yariel, Functional Strength, Group Therapy, Gait, Safety, Therapeutic Exercise, Transfers Treatment Duration: Mar 30, 2022 Frequency: 11 times per week Estimated Hrs Per Day: .25 hour per day Patient and/or Family Agrees t: Yes Time/GCodes Time In: 840 Time Out: 903 Total Billed Treatment Time: 23 Total Billed Treatment 1 visit EX 13 min GT 10 min LO SOLIZ PT Feb 28, 2022 10:17
--- NOTE | 2022-02-28 11:00 | Occupational Therapy Eval ---
OT Evaluation-General/PLF Medical Diagnosis Admission Date Feb 27, 2022 at 05:54 Medical Diagnosis: Left TKA Onset Date: Feb 27, 2022 Therapy Diagnosis Therapy Diagnosis: reduced endurance, adl status Precautions Precautions/Isolations: Fall Prevention, Standard Precautions Weight Bear Status Weight Bearing Restriction: Weight Bearing/Tolerated Location Restriction: L LE Referral Physician: Dr. Belle Referral Reason: Evaluation/Treatment Medical History Current History s/p TKA, post op day 1. Per patient, he lives with several roommates in a single story home. He was indep with adls and iadls. He does not drive, but has a friend that he can call that will help him with transportation. He was not using any AD at baseline. Reviewed History: Yes Social History Home: Single Level Current Living Status: Friend Entry Into Home: Stairs With Railing Steps Into Home: 4 ADL-Prior Level of Function SCALE: Activities may be completed with or without assistive devices. 2-Qgcipsrncg-umjvprj completes the activity by him/herself with no assistance from a helper. 5-Set-up or Clean-up Assistance-helper sets up or cleans up; patient completes activity. [place] assists only prior to or following the activity. 4-Supervision or Touching Assistance-helper provides verbal cues and/or touching/steadying and/or contact guard assistance as patient completes activity. Assistance may be provided throughout the activity or intermittently. 3-Partial/Moderate Assistance-helper does LESS THAN HALF the effort. [place] lifts, holds or supports trunk or limbs, but provides less than half the effort. 2-Substantial/Maximal Assistance-helper does MORE THAN HALF the effort. [place] lifts or holds trunk or limbs and provides more than half the effort. 7-Ettdyudxw-vmhuzg does ALL the effort. Patient does none of the effort to complete the activity. Or, the assistance of 2 or more helpers is required for the patient to complete the activity. If activity was not attempted, code reason: 7-Patient Refused. 9-Not Applicable-not attempted and the patient did not perform the activity before the current illness, exacerbation or injury. 10-Not Attempted due to Environmental Limitations-(lack of equipment, weather restraints, etc.). 88-Not Attempted due to Medical Conditions or Safety Concerns. Self Care: Independent Functional Cognition: Independent DME/Equipment: Bath Chair, Shower Drive Self: No OT Current Status Subjective Pt reports pain as 8/10. Unsure of time of last pain meds. Appearance Pt returned to sitting in recliner, all needs within reach. Mental Status/Objective Patient Orientation: Person, Place, Situation Attachments: IV, Oxygen (3L) Current Dentures/Partials: Yes Hand Dominance: Right Upper Extremity ROM WNL Upper Extremity Strength R shoulder: 3+/5 all other joints WNL ADL-Treatment Eating (QC): 6 On/Off Footwear (QC): 4 Toileting Hygiene (QC): 4 Pt sitting in chair at OT arrival. Able to don/doff bilateral socks without assistance, extra time to complete LLE secondary to pain. Sit<>stand: SBA. Pt ambulated to/from bathroom with SBA-CGA, min cues for safety with IV/O2 line. Pt stood at toilet to void. Pt with L toes only on floor, despite cues for WBAT. He was able to simulate clothing management with zero UE support. No lob or unsteadiness in standing. Pt exhibits SOB after minimal activity, O2 at 90%. Cues for PLB, recovers to 93%. Education OT Patient Education: Correct positioning, Energy conservation, Modified ADL techniques, Purpose of tx/functional activities, Reviewed precautions, Rehab process, Safety issues, Transfer techniques Teaching Recipient: Patient Teaching Methods: Demonstration, Discussion Response to Teaching: Verbalize Understanding, Return Demonstration, Reinforcement Needed OT [facility] Goals Rehabilitation Clerk Goals Time Frame: Mar 05, 2022 Toileting Hygiene (QC): 6 Upper Body Dressing (QC): 5 Lower Body Dressing (QC): 5 On/Off Footwear (QC): 5 1=Demonstrate adherence to instructed precautions during ADL tasks. 2=Patient will verbalize/demonstrate understanding of assistive de vices/modifications for ADL. 3=Patient will improve strength/tolerance for activity to enable patient to perform ADL's. OT Education/Plan Problem List/Assessment Assessment: Decreased Activ Tolerance, Decreased UE Strength, Impaired Funct Balance, Impaired I ADL's, Impaired Self-Care Skills Discharge Recommendations Plan/Recommendations: Continue POC Therapy Discharge Recommendati: Home & Family Treatment Plan/Plan of Care Treatment,Training & Education: Yes Patient would benefit from OT for education, treatment and training to promote independence in ADL's, mobility, safety and/or upper extremity function for ADL's. Plan of Care: ADL Retraining, Functional Mobility, Group Exercise/Act as Ind, UE Funct Exercise/Act Treatment Duration: Mar 05, 2022 Frequency: 5 times per week Rehab Potential: Good Time/GCodes Start Time: 10:10 Stop Time: 10:27 Total Time Billed (hr/min): 17 Billed Treatment Time 1 visit Kimi Marquis OT Feb 28, 2022 11:00
[2022-02-28 11:12] VITALS: BP 148/74
--- NOTE | 2022-02-28 14:52 | Physical Therapy Daily Note ---
PT Daily Note-Current Subjective Patient adamantly declined gait training but agrees to exercises. Mental Status Attachments: Polar Pack, IV Transfers SCALE: Activities may be completed with or without assistive devices. 4-Pgdlbawkmn-ugqovrs completes the activity by him/herself with no assistance from a helper. 5-Set-up or Clean-up Assistance-helper sets up or cleans up; patient completes activity. [place] assists only prior to or following the activity. 4-Supervision or Touching Assistance-helper provides verbal cues and/or to uching/steadying and/or contact guard assistance as patient completes activity. Assistance may be provided throughout the activity or intermittently. 3-Partial/Moderate Assistance-helper does LESS THAN HALF the effort. [place] lifts, holds or supports trunk or limbs, but provides less than half the effort. 2-Substantial/Maximal Assistance-helper does MORE THAN HALF the effort. [place] lifts or holds trunk or limbs and provides more than half the effort. 4-Wtrytklcp-kqgshy does ALL the effort. Patient does none of the effort to complete the activity. Or, the assistance of 2 or more helpers is required for the patient to complete the activity. If activity was not attempted, code reason: 7-Patient Refused. 9-Not Applicable-not attempted and the patient did not perform the activity before the current illness, exacerbation or injury. 10-Not Attempted due to Environmental Limitations-(lack of equipment, weather restraints, etc.). 88-Not Attempted due to Medical Conditions or Safety Concerns. Weight Bearing Right Lower Extremity: Right Full Weight Bearing Left Lower Extremity: Left Weight Bearing/Tolerated Exercises Supine Ex: Ankle pumps, Quad Set, Heel Slides, Straight leg raise Supine Reps: 15 (AAROM left LE) Assessment Patient tolerated exercises and continues to lack ~10 degrees knee extension. PT encouraged patient to ambulate, however, patient continues to decline. PT Ruffling Hemmer Automatic Goals Halfway Goals PT Halfway Goals Time Frame: Mar 15, 2022 Roll Left & Right (QC): 6 Sit to Lying (QC): 6 Lying-Sitting on Side/Bed(QC): 6 Sit to Stand (QC): 6 Chair/Lww-ys-Vpihk Xfer(QC): 6 Toilet Transfer (QC): 4 Car Transfer (QC): 4 Does the Patient Walk: Yes Walk 10 feet (QC): 4 Walk 50ft with 2 Turns (QC): 4 Walk 150 ft (QC): 4 1 Step (curb) (QC): 4 4 Steps (QC): 4 PT Plan Treatment/Plan Treatment Plan: Continue Plan of Care Treatment Plan: Bed Mobility, Education, Functional Activity Yariel, Functional Strength, Group Therapy, Gait, Safety, Therapeutic Exercise, Transfers Treatment Duration: Mar 30, 2022 Frequency: 11 times per week Estimated Hrs Per Day: .25 hour per day Patient and/or Family Agrees t: Yes Time/GCodes Time In: 1345 Time Out: 1359 Total Billed Treatment Time: 15 Total Billed Treatment 1 visit EX 15 min LO SOLIZ PT Feb 28, 2022 14:52
[2022-02-28 16:01] VITALS: BP 132/76
--- NOTE | 2022-02-28 17:27 | Progress Note ---
Subjective Date Seen by a Provider: Feb 28, 2022 Time Seen by a Provider: 12:30 Subjective/Events-last exam Fwup Left TKA, HTN, COPD, PAD, Hyperlipidemia. Pain well controlled. Still on oxygen. Objective Exam Vital Signs Date Time Temp Pulse Resp B/P (MAP) Pulse Ox O2 Delivery O2 Flow Rate FiO2 02/28/22 16:01 38.1 107 22 132/76 (94) 92 High Flow N/C 6.00 02/28/22 11:12 37.2 93 18 148/74 (98) 90 High Flow N/C 3.00 02/28/22 08:00 97 High Flow N/C 3.00 02/28/22 07:38 37.7 77 20 136/76 (96) 93 High Flow N/C 6.00 02/28/22 03:36 38.0 02/28/22 03:08 38.0 82 22 100/53 (69) 93 Nasal Cannula 6.00 02/28/22 02:44 94 High Flow N/C 6.00 02/27/22 23:39 37.1 95 22 163/71 (101) 96 Nasal Cannula 6.00 02/27/22 22:36 91 High Flow N/C 6.00 02/27/22 20:58 96 High Flow N/C 6.00 02/27/22 19:38 95 Nasal Cannula 6.00 02/27/22 19:30 37.6 93 22 162/71 (101) 96 Nasal Cannula 6.00 I & O 02/28/22 07:00 Intake Total 3580 ml Output Total 1050 ml Balance 2530 ml Capillary Refill : General Appearance: No Apparent Distress Neck: Supple Respiratory: Decreased Breath Sounds, Rhonci Cardiovascular: Regular Rate, Rhythm Gastrointestinal: non tender, soft Extremity: Non Tender, No Calf Tenderness, No Pedal Edema, Other (FRANKLYN hose in place) Neurologic/Psychiatric: Alert, Oriented x3 Skin: Warm/Dry, Other (dry dressing in place to left knee) Results Lab Laboratory Tests 02/28/22 05:09: Hemoglobin 10.7L, Hematocrit 33L Assessment/Plan Assessment/Plan Assess & Plan/Chief Complaint 1. S/P Left TKA--pain control, PT, DVT prophylaxis with lovenox 2. HTN--resumed losartan 3. COPD with ongoing tobacco abuse--requiring oxygen, SVNs with duoneb started 4. PAD--plavix restarted 5. Hyperlipidemia--atorvastatin restarted Clinical Quality Measures Admission Status Admission Dx 1. Severe Left Knee Osteoarthritis--S/P Left TKA, pain control, lovenox for DVT prophylaxis 2. PAD with history of stents--resume plavix 3. Hypertension--resume losartan 4. Hyperlipidemia--resume atorvastatin 5. COPD with ongoing tobacco abuse--start IS as well as SVNS with duoneb, patient currently requiring post-op oxygen HAMILTON DAVIS DO Feb 28, 2022 17:27
[2022-02-28 19:59] VITALS: BP 160/69
[2022-02-28 23:44] VITALS: BP 166/70
[2022-03-01] MEDS: RT-ALBUTEROL/IPRATROPIUM 3 ML (DUONEB) VIAL INH SCH ×3 (02:06→11:04)
[2022-03-01 03:44] VITALS: BP 133/73
[2022-03-01 05:23] LABS: HEMOGLOBIN 10.8 g/dL (13.3-17.7)
[2022-03-01] MEDS ORDERED: morphine INJ 4 MG/ML 1 ML (VIAL/SYRINGE) IVP PRN (07:00)
--- NOTE | 2022-03-01 07:00 | Progress Note ---
Standard Progress Note Progress Notes/Assess & Plan Date Seen by a Provider: Mar 01, 2022 Time Seen by a Provider: 06:58 Progress/Assessment & Plan no complaints readiographs--HW well positioned without fracture LLE--2 plus DP pulse with brisk cap refill intact DF and PF of toes and ankle sensation intact to light touch throughout s/p LTKA mobilize as able Final Diagnosis no complaints feeling better this AM Vital Signs Date Time Temp Pulse Resp B/P (MAP) Pulse Ox O2 Delivery O2 Flow Rate FiO2 03/01/22 06:54 93 High Flow N/C 5.00 03/01/22 03:44 37.3 69 22 133/73 (93) 92 High Flow N/C 6.00 02/28/22 23:44 37.2 97 20 166/70 (102) 93 High Flow N/C 6.00 02/28/22 21:39 91 High Flow N/C 5.00 02/28/22 20:20 93 High Flow N/C 6.00 02/28/22 19:59 37.1 86 20 160/69 (99) 97 High Flow N/C 6.00 02/28/22 19:36 22 02/28/22 19:24 97 High Flow N/C 6.00 02/28/22 16:01 38.1 107 22 132/76 (94) 92 High Flow N/C 6.00 02/28/22 11:12 37.2 93 18 148/74 (98) 90 High Flow N/C 3.00 02/28/22 08:00 97 High Flow N/C 3.00 02/28/22 07:38 37.7 77 20 136/76 (96) 93 High Flow N/C 6.00 I & O 03/01/22 07:00 Intake Total 2500 ml Balance 2500 ml Laboratory Tests Test 03/01/22 05:00 Range/Units Hemoglobin 10.8 L 13.3-17.7 g/dL Hematocrit 34 L 40-54 % LLE--incision clean and dry. No calf tenderness. Neg Chelle's s/p LTKA DC home after PT if doing well JEAN CLAUDE SPENCE MD Mar 01, 2022 07:00
[2022-03-01 08:34] VITALS: BP 131/60
[2022-03-01] MEDS: CLOPIDOGREL 75 MG (PLAVIX) TABLET PO SCH (08:44)
[2022-03-01] MEDS: ASPIRIN E.C. 81 MG (ECOTRIN) TAB PO SCH (08:44)
[2022-03-01] MEDS: ENOXAPARIN INJECTION 30 MG/0.3 ML SYR SC SCH (08:44)
[2022-03-01] MEDS: SENNA W/DOCUSATE (SENOKOT S) TABLET PO SCH (08:44)
[2022-03-01] MEDS: LOSARTAN 25 MG (COZAAR) TAB PO SCH (08:45)
[2022-03-01] MEDS: oxyCODONE/APAP 5/325MG (PERCOCET 5) TABLET PO PRN (08:45)
[2022-03-01] MEDS: PANTOPRAZOLE 20 MG TABLET (PROTONIX) PO SCH (08:45)
--- NOTE | 2022-03-01 09:38 | Physical Therapy Daily Note ---
PT Daily Note-Current Subjective Patient agrees to PT. Pain Numeric Pain Scale: 5-Moderate Pain Location: Left Location Body Site: Knee Pain Description: Acute Transfers SCALE: Activities may be completed with or without assistive devices. 2-Wshwpouifm-ltrsezp completes the activity by him/herself with no assistance from a helper. 5-Set-up or Clean-up Assistance-helper sets up or cleans up; patient completes activity. [place] assists only prior to or following the activity. 4-Supervision or Touching Assistance-helper provides verbal cues and/or touching/steadying and/or contact guard assistance as patient completes activity. Assistance may be provided throughout the activity or intermittently. 3-Partial/Moderate Assistance-helper does LESS THAN HALF the effort. [place] lifts, holds or supports trunk or limbs, but provides less than half the effort. 2-Substantial/Maximal Assistance-helper does MORE THAN HALF the effort. [place] lifts or holds trunk or limbs and provides more than half the effort. 4-Brsqfgghd-kmqrca does ALL the effort. Patient does none of the effort to complete the activity. Or, the assistance of 2 or more helpers is required for the patient to complete the activity. If activity was not attempted, code reason: 7-Patient Refused. 9-Not Applicable-not attempted and the patient did not perform the activity before the current illness, exacerbation or injury. 10-Not Attempted due to Environmental Limitations-(lack of equipment, weather restraints, etc.). 88-Not Attempted due to Medical Conditions or Safety Concerns. Lying to Sitting/Side of Bed(Q: 6 Sit to Stand (QC): 6 Chair/Fvj-lm-Uepsn Xfer(QC): 6 Weight Bearing Right Lower Extremity: Right Full Weight Bearing Left Lower Extremity: Left Weight Bearing/Tolerated Gait Training Distance: 200' Walk 10 feet (QC): 4 Walk 50 ft with 2 Turns(QC): 4 Walk 150 ft (QC): 4 Gait Assistive Device: FWW continues to demonstrate flexed knee gait with VC's to foot flat Exercises Supine Ex: Ankle pumps, Quad Set, Heel Slides, Straight leg raise Supine Reps: 15 Seated Therapy Exercises: Long arc quads Seated Reps: 15 Assessment Patient tolerated treatment well and is up in recliner with needs met. Patient will dismiss to home on this date. PT Lath Hand Goals Snf Goals PT Snf Goals Time Frame: Mar 15, 2022 Roll Left & Right (QC): 6 Sit to Lying (QC): 6 Lying-Sitting on Side/Bed(QC): 6 Sit to Stand (QC): 6 Chair/Zut-st-Esuxl Xfer(QC): 6 Toilet Transfer (QC): 4 Car Transfer (QC): 4 Does the Patient Walk: Yes Walk 10 feet (QC): 4 Walk 50ft with 2 Turns (QC): 4 Walk 150 ft (QC): 4 1 Step (curb) (QC): 4 4 Steps (QC): 4 PT Plan Treatment/Plan Treatment Plan: Continue Plan of Care Treatment Plan: Bed Mobility, Education, Functional Activity Yariel, Functional Strength, Group Therapy, Gait, Safety, Therapeutic Exercise, Transfers Treatment Duration: Mar 30, 2022 Frequency: 11 times per week Estimated Hrs Per Day: .25 hour per day Patient and/or Family Agrees t: Yes Time/GCodes Time In: 806 Time Out: 823 Total Billed Treatment Time: 17 Total Billed Treatment 1 visit FA 17 min LO SOLIZ PT Mar 01, 2022 09:38
[2022-03-01] MEDS ORDERED: RT-ALBUINH INH (11:19)
[2022-03-01 12:41] VITALS: BP 142/63
--- NOTE | 2022-03-01 13:21 | Occ Therapy Progress Note ---
Therapy Progress Note OT treatment attempted. Pt politely declines all treatment ideas as he reports he will be discharging soon. Kimi Mueller OT Mar 01, 2022 13:21
--- NOTE | 2022-03-01 14:02 | DISCHARGE SUMMARY ---
DATE OF SERVICE: DIAGNOSES: 1. Left knee primary osteoarthritis. 2. Hypertension. 3. Reflux. 4. Hypercholesterolemia. PROCEDURE: Left total knee arthroplasty. SUMMARY: The patient is a 76-year-old gentleman who underwent a left total knee arthroplasty on the day of admission. Postoperatively, he did well. At the time of discharge, his wound was clean and dry, had no calf tenderness. Negative Homans sign. He was tolerating his diet well and tolerating pain with oral pain medication. CONDITION AT DISCHARGE: Good. DISCHARGE DIET: Regular. FOLLOWUP: Followup is in three weeks. Home physical therapy has been arranged. ACTIVITIES: Weightbearing as tolerated with a walker. DISCHARGE MEDICATIONS: Discharge medications are home medications, one aspirin per day and Percocet as needed for pain. Job ID: [id number] DocumentID: [id number] Dictated Date: 02/28/2022 17:29:23 Kiss Setter Hand Date: 03/01/2022 14:01:02 Dictated By: JEAN CLAUDE SPENCE MD
--- NOTE | 2022-03-01 14:24 | Progress Note ---
Subjective Date Seen by a Provider: Mar 01, 2022 Time Seen by a Provider: 11:00 Subjective/Events-last exam Fwup Left TKA, HTN, COPD, PAD, Hyperlipidemia. Still requiring oxygen and on home O2 qualifier needs 3L with exertion and also needs nocturnal oxygen at 3L. He is getting around well and has roommates so feels like he is able to go home with homehealth and oxygen. I did discuss with him that he cannot smoke with oxygen because it can explode or catch fire. Objective Exam Vital Signs Date Time Temp Pulse Resp B/P (MAP) Pulse Ox O2 Delivery O2 Flow Rate FiO2 03/01/22 12:41 37.3 102 19 142/63 (89) 90 High Flow N/C 6.00 03/01/22 11:06 92 High Flow N/C 3.00 03/01/22 08:34 37.6 100 18 131/60 (83) 93 High Flow N/C 6.00 03/01/22 08:00 97 High Flow N/C 3.00 03/01/22 06:54 93 High Flow N/C 5.00 03/01/22 03:44 37.3 69 22 133/73 (93) 92 High Flow N/C 6.00 02/28/22 23:44 37.2 97 20 166/70 (102) 93 High Flow N/C 6.00 02/28/22 21:39 91 High Flow N/C 5.00 02/28/22 20:20 93 High Flow N/C 6.00 02/28/22 19:59 37.1 86 20 160/69 (99) 97 High Flow N/C 6.00 02/28/22 19:36 22 02/28/22 19:24 97 High Flow N/C 6.00 02/28/22 16:01 38.1 107 22 132/76 (94) 92 High Flow N/C 6.00 I & O 03/01/22 07:00 Intake Total 2500 ml Balance 2500 ml Capillary Refill : General Appearance: No Apparent Distress Neck: Supple Respiratory: Lungs Clear, Decreased Breath Sounds Cardiovascular: Regular Rate, Rhythm, Gallop/S4 Extremity: Non Tender, No Calf Tenderness, No Pedal Edema Neurologic/Psychiatric: Alert, Oriented x3 Results Lab Laboratory Tests 03/01/22 05:00: Hemoglobin 10.8L, Hematocrit 34L Assessment/Plan Assessment/Plan Assess & Plan/Chief Complaint 1. S/P Left TKA--pain well controlled, home with PT 2. HTN--stable on losartan 3. COPD with ongoing tobacco abuse--smoking cessation discussed/encouraged, home on oxygen at 3L with exertion and at night 4. PAD--home on plavix and aspirin 5. Hyperlipidemia--stable on atorvastatin I will see him in fwup in 2 weeks Clinical Quality Measures Admission Status Admission Dx 1. Severe Left Knee Osteoarthritis--S/P Left TKA, pain control, lovenox for DVT prophylaxis 2. PAD with history of stents--resume plavix 3. Hypertension--resume losartan 4. Hyperlipidemia--resume atorvastatin 5. COPD with ongoing tobacco abuse--start IS as well as SVNS with hu harding currently requiring post-op oxygen HAMILTON DAVIS DO Mar 01, 2022 14:24
[2022-03-01 14:55] VITALS: BP 142/63
== END 2022-03-01 15:13 | disposition home health service (06) | DRG 470 ==
LOC: 4TH 05:54 → SURG 05:55 → EDSTATUS 08:00 → 4TH 10:05
PROVIDERS: ADMIT Orthopaedic Surgery; ATTEND Orthopaedic Surgery
PROC: 5A0945A Assistance with Respiratory Ventilation, 24-96 Consecutive Hours, High Flow/Velocity Cannula (ICD-10-PCS; 2022-02-27)
PROC: 0SRD0J9 Replacement of Left Knee Joint with Synthetic Substitute, Cemented, Open Approach (ICD-10-PCS; principal; 2022-02-27 07:30)
DX: M17.12 Unilateral primary osteoarthritis, left knee (principal); I10 Essential (primary) hypertension; K21.9 Gastro-esophageal reflux disease without esophagitis; E78.00 Pure hypercholesterolemia, unspecified; I73.9 Peripheral vascular disease, unspecified; J44.9 Chronic obstructive pulmonary disease, unspecified; F17.210 Nicotine dependence, cigarettes, uncomplicated; Z79.82 Long term (current) use of aspirin; Z79.899 Other long term (current) drug therapy; G89.29 Other chronic pain; M54.9 Dorsalgia, unspecified; Z95.820 Peripheral vascular angioplasty status with implants and grafts
CPT/HCPCS: 36415; 73560; 85014; 85018; 86850; 86900; 86901; 94640; 94760; 94761

== ENCOUNTER → 2023-05-19 | Outpatient (CLI) | payer MEDICARE, MEDICAID ==
[~2023-05-19] MED LIST changes: +RT-ALBUINH INH
== END ==
LOC: CARD 14:02
PROVIDERS: ATTEND Physician Assistant
DX: I11.9 Hypertensive heart disease without heart failure (principal); I25.10 Atherosclerotic heart disease of native coronary artery without angina pectoris
CPT/HCPCS: 93306

== ENCOUNTER → 2023-06-18 | Outpatient (CLI) | payer MEDICARE, MEDICAID ==
[~2023-06-18] MED LIST changes: +CATHETER FLUSH 10 ML SYR IVP PRN; +REGADENOSON 0.4 MG/5 ML SYR IV ONE
[2023-06-18 13:57] VITALS: BP 143/67
--- NOTE | 2023-06-18 15:37 | Cardiology Stress Test Report ---
Stress Test Report Date of Procedure/Referring: Date of Procedure: Jun 18, 2023 PCP Liliam Logan DO Admitting Physician Admitting Physician: Attending Physician: Rosemary Amaya Baseline Heart Rate: 73 Baseline Blood Pressure: Blood Pressure Systolic: 143 Blood Pressure Diastolic: 67 Baseline Vitals Vital Signs Date Time Temp Pulse Resp B/P (MAP) Pulse Ox O2 Delivery O2 Flow Rate FiO2 06/18/23 13:57 73 143/67 (92) Baseline EKG: Baseline EKG: RBBB Summary After explaining the procedure to the patient, he signed a consent and then brought to the stress nuclear laboratory. Patient received 0.4 mg Lexiscan for stress test, ECG, heart rate and blood pressure were monitored continuously. Resting and stress dose of radio tracer were injected, imaging was acquired and reviewed in short axis, horizontal long axis and vertical long axis views. TID: 0.97 SSS: 7 SDS: 2 EF: 52 Patient tolerated Lexiscan well Baseline right bundle branch block persisted during test Diaphragmatic attenuation with fixed defect at the basal to mid inferior wall with no significant ischemia or infarction on SPECT images Normal left ventricular size, ejection fraction 52% Copy Copies To 1: LILIAM LOGAN BASHAR J MD Jun 18, 2023 15:37
== END ==
LOC: CARD 12:30
PROVIDERS: ATTEND Physician Assistant
DX: I45.19 Other right bundle-branch block (principal); J98.6 Disorders of diaphragm; I10 Essential (primary) hypertension; I25.10 Atherosclerotic heart disease of native coronary artery without angina pectoris
CPT/HCPCS: 78452; 93017; A9502